=== PATIENT | female | born 1995 | race Two or more races ===

== ENCOUNTER 2024-11-06 13:04 | Emergency (ER) | payer MEDICAID, SELFPAY ==
[2024-11-06 13:13] VITALS: BP 138/92; PULSE 83; RESP 16; TEMP 36.9; O2SAT 97; BMI 41.3
--- NOTE | 2024-11-06 13:24 | XR_ITS ---
Examination: Pelvic ultrasound, transabdominal, complete Technique: Transabdominal ultrasound of the pelvis performed using grayscale imaging Date and time of exam: November 06, 2024 1358 hours INDICATIONS: Irregular heavy menses 5 days FINDINGS: Uterus 9.3 cm endometrial stripe 0.7 cm Small calcifications in the uterine body Right ovary 3.2 cm arterial flow Left ovary 3.5 cm arterial flow IMPRESSION: No uterine or adnexal mass
--- NOTE | 2024-11-06 13:24 | EKG_ITS ---
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
--- NOTE | 2024-11-06 13:24 | XR_ITS ---
Examination: PA lateral chest 2 views TECHNIQUE: Upright PA lateral chest 2 views Date and time: November 06, 2024 1338 hours INDICATIONS: Chest pain today. FINDINGS: Reduced inspiratory effort Normal heart size No pneumonia or pulmonary edema IMPRESSION: No active disease
--- NOTE | 2024-11-06 13:25 | PD.EDRME ---
Rapid Medical Screening Exam RME Arrival date/time: 11/06/24 13:04 29-year-old female presents emergency department today for complaint of vaginal bleeding Chief Complaint: Vaginal Bleeding Time Seen by Provider: 11/06/24 13:19 Vital signs: Vital Signs Temperature 98.4 F 11/06/24 13:13 Pulse Rate 83 11/06/24 13:13 Respiratory Rate 16 11/06/24 13:13 Blood Pressure 138/92 H 11/06/24 13:13 Pulse Oximetry (%) 97 11/06/24 13:13 Oxygen Delivery Method Room Air 11/06/24 13:13
[2024-11-06 14:38] LABS: Basophils # (Auto) 0.1 Thou/mm3 (0.0-0.2); Basophils % (Auto) 1 % (0-2.5); Eosinophils # (Auto) 0.1 Thou/mm3 (0.0-0.5); Eosinophils % (Auto) 2 % (0-10); Hematocrit 38.6 % (36.0-46.0); Hemoglobin 13.8 g/dL (12.0-16.0); Immature Granulocytes % (Auto) 0 % (0-0); Immature Granulocytes Auto 0.02 Thou/mm3 (0.00-0.00); Lymphocytes # (Auto) 1.4 Thou/mm3 (1.0-4.8); Lymphocytes % (Auto) 20 % (10-50); Mean Corpuscular HGB Conc 35.8 g/dl (31.0-37.0); Mean Corpuscular Hemoglobin 29.4 pg (25.0-35.0); Mean Corpuscular Volume 82 fL (80-100); Monocytes # (Auto) 0.5 Thou/mm3 (0.0-0.8); Monocytes % (Auto) 7 % (0-12); Neutrophils # (Auto) 5.1 Thou/mm3 (1.8-7.7); Neutrophils % (Auto) 71 % (37-80); Nucleated Red Blood Cell % 0 /100 WBC (0); Platelet Count 280 Thou/mm3 (140-440); RDW Standard Deviation 36.2 fL (36.4-46.3); White Blood Count 7.3 Thou/mm3 (3.6-11.0)
[2024-11-06 14:50] LABS: Glucose Estimated Average 283 mg/dL (80-131); Hemoglobin A1C 11.5 % Hgb (4.8-6.0)
[2024-11-06 14:57] LABS: HCG,Qualitative Serum Negative
[2024-11-06 14:58] LABS: INR 0.9 (0.9-1.3); Partial Thromboplastin Time 26.7 Seconds (22.0-36.0); Prothrombin Time 10.3 Seconds (9.0-12.2)
[2024-11-06 15:02] LABS: Alanine Aminotransferase 12 U/L (10-49); Albumin, Serum 3.9 gm/dL (3.5-5.0); Albumin/Globulin Ratio 1.5 (1.2-2.2); Alkaline Phosphatase 69 U/L (46-116); Anion Gap 6 (7-16); Aspartate Amino Transferase 13 U/L (0-34); BUN/Creatinine Ratio 10 Ratio (12-20); Bilirubin,Total 0.3 mg/dL (0.3-1.2); Blood Urea Nitrogen 9 mg/dL (9-23); Calcium 9.2 mg/dL (8.3-10.6); Calcium (Corrected) 9.3 mg/dL (8.5-10.1); Carbon Dioxide 28.3 mMol/L (20.0-31.0); Chloride 100 mMol/L (98-107); Creatinine (Component) 0.9 mg/dL (0.6-1.3); Estimated Creatinine Clearance 110.3 mL/min (>60); Globulin 2.6 gm/dL (2.3-3.5); Osmolality,Calculated 285 (275-295); Potassium 4.2 mMol/L (3.4-5.1); Sodium 134 mMol/L (136-145); Total Protein 6.5 gm/dL (5.7-8.2); Troponin I < 0.002 ng/mL (0.0-0.045); eGFR > 60 See Note
[2024-11-06 15:06] LABS: Glucose 437 mg/dL (74-106)
--- NOTE | 2024-11-06 17:16 | PD.EDVAGBL ---
ED OB Contraction Preg RMI/HPI General Chief complaint: Vaginal Bleeding Stated complaint: Vaginal bleeding heavy X 3 days Time Seen by Provider: 11/06/24 13:19 Arrival date/time: 11/06/24 13:04 RME / HPI RME / HPI Narrative: 29-year-old female patient with significant history of diabetes mellitus, came in for evaluation regarding dizziness. Patient is worried because she is having sudden onset of dizziness, severity mild. Today is her third day of heavy menstruation. She is worried that she might be anemic. Patient denies any headache denies any blurring vision, denies any slurring of speech denies any other complaint patient is ambulatory. Patient ate lunch prior to ER visit. Related Data Home Medications ?Medication ?Instructions ?Recorded ?Confirmed insulin glargine 100 unit/mL (3 40 unit subcut QAM 09/19/21 11/02/21 mL) subcutaneous pen (CHROMAomaglar KwikPen U-100 Insulin) lisinopril 2.5 mg tablet 2.5 mg PO QDAY 09/19/21 11/02/21 loratadine 10 mg tablet 10 mg PO QDAY PRN allergies 09/19/21 11/02/21 sitagliptin phosphate 50 1 tab PO BID 09/19/21 11/02/21 mg-metformin 1,000 mg tablet (Janumet) Previous Rx's ?Medication ?Instructions ?Recorded alprazolam 0.25 mg tablet (Xanax) 0.25 mg PO QDAY PRN anxiety #7 tabs 11/02/21 ondansetron 4 mg disintegrating 4 mg PO Q8H #14 tabs 03/11/22 tablet diphenhydramine HCl 25 mg capsule 25 mg PO Q8H PRN allergic symptoms 06/28/22 (Benadryl) #30 caps clindamycin HCl 300 mg capsule 300 mg PO QID #40 caps 12/23/22 Allergies Allergy/AdvReac Type Severity Reaction Status Date / Time No Known Allergies Allergy Verified 11/06/24 13:10 Review of Systems Review of Systems Narrative Review of Systems: Review of system reviewed and within normal limits except mentioned in HPI ED Exam Narrative Physical exam: VITAL SIGNS: Reviewed. GENERAL APPEARANCE: Alert and interactive, follows commands, no acute distress, HEAD AND FACE: Non-traumatic. ENT: PERRL, pink conjunctivitis, eyelid no trauma, Mucous membrane moist. NECK: Supple, nontender, no nuchal rigidity. CHEST: No tenderness, no crepitus, no paradoxical movement, no retractions. LUNGS: Clear, well ventilated, symmetric, no rales, no wheezing, no ronchi, no stridor, good breath sounds bilaterally. HEART: Regular rate, regular rhythm, no murmur, no gallops. ABDOMEN: Soft, positive bowel sounds, nondistended, no guarding, nontender, no rebound, no masses, RECTAL: Deferred. GENITAL: Deferred. NEUROLOGICAL: Gross motor function intact sensory function intact, Appropriate for age. MUSCULOSKELETAL: low back nontender, full range of motion. EXTREMITIES: Nontender, full range of motion. SKIN: Color pink, dry, no rash, no lacerations, no abrasions, no contusions. LYMPHATICS: Deferred. Course Quality Measures none Orders Category Date Time Status EKG (ED ONLY) *Do not use* NOW Care 11/06/24 13:24 Completed EKG (ED Only) Stat Exams 11/06/24 13:24 Draft US pelvic complete Stat Exams 11/06/24 13:24 Completed XR chest 2V Stat Exams 11/06/24 13:24 Completed A1C [Glycohemoglobin w (eAG)] Stat Lab 11/06/24 14:25 Completed CBC Stat Lab 11/06/24 14:25 Completed Comprehensive Metabolic Panel Stat Lab 11/06/24 14:25 Completed HCG,Qualitative Serum Stat Lab 11/06/24 14:25 Completed PT [Prothrombin Time with INR] Stat Lab 11/06/24 14:25 Completed PTT [Partial Thromboplastin Time] Stat Lab 11/06/24 14:25 Completed Troponin I Stat Lab 11/06/24 14:25 Completed Vital Signs Vital signs: Vital Signs Temperature 98.4 F 11/06/24 13:13 Pulse Rate 83 11/06/24 13:13 Respiratory Rate 16 11/06/24 13:13 Blood Pressure 138/92 H 11/06/24 13:13 Pulse Oximetry (%) 97 11/06/24 13:13 Oxygen Delivery Method Room Air 11/06/24 13:13 Vaginal Bleeding MDM Narrative MDM Narrative: 29-year-old female patient with significant history of diabetes mellitus, came in for evaluation regarding dizziness. Patient is worried because she is having sudden onset of dizziness, severity mild. Today is her third day of heavy menstruation. She is worried that she might be anemic. Patient denies any headache denies any blurring vision, denies any slurring of speech denies any other complaint patient is ambulatory. Patient ate lunch prior to ER visit. Patient patient's workup is significant for hyperglycemia, no sign of DKA. CBC no anemia noted. Patient blood sugar initially was noted to be 437. Prior to discharge I localized her iPhone with blood sugar check, it was 309. Patient is ambulatory wanted to go home. Her dizziness is totally gone. Patient data External records reviewed:: None Clinical information provided by:: patient Social determinants that could affect healthcare access:: none Patient has the following chronic illnesses:: Diabetes mellitus How is presenting disease/condition affected by chronic disease/condition?: exacerbated by Evaluation data The following diagnostics were reviewed and interpreted by me:: lab results and radiology exam(s) Lab and/or radiology exams considered but not ordered:: None Interpretation Summary: See results MDM Medications / Prescriptions Medications or Prescriptions considered but not ordered:: None Medication administrations:: None Consultations Consultation(s) initiated? (list below): No Diagnosis Vaginal Bleeding Differential Diagnosis: dysfunctional uterine bleeding, menometrorrhagia and incomplete (Dizziness) Most likely diagnosis given after review of the tests above:: Dizziness, vaginal bleeding Admission Indicated Admission indicated?: not indicated Admission Request Was there a request for admission?: No Disposition Plan Disposition Plan: Discharge Discharge Attestation Discharge Attestation: The patient was given an opportunity to ask questions and understood the discharge instructions. Discharge instructions specifically effects, indications for sooner follow up or return to the emergency department, and the expected course of current diagnosis. Patient condition: Stable Discharge Plan Plan Patient Disposition: HOME (Self Care) Discharge Disposition comment: Stable Prescriptions/Referrals Prescriptions/Med Rec: No Action alprazolam [Xanax] 0.25 mg tablet 0.25 mg PO QDAY PRN (Reason: anxiety) Qty: 7 0RF lisinopril 2.5 mg Tablet 2.5 mg PO QDAY loratadine 10 mg Tablet 10 mg PO QDAY PRN (Reason: allergies) Janumet 50-1,000 mg Tablet 1 tab PO BID insulin glargine [Basaglar KwikPen U-100 Insulin] 100 unit/mL (3 mL) Insulin Pen 40 unit SUBCUT QAM diphenhydramine HCl [Benadryl] 25 mg capsule 25 mg PO Q8H PRN (Reason: allergic symptoms) Qty: 30 0RF clindamycin HCl 300 mg capsule 300 mg PO QID Qty: 40 0RF ondansetron 4 mg tablet,disintegrating 4 mg PO Q8H Qty: 14 0RF Referrals: Yris Latham, [employer] [Primary Care Provider] - In 1 week Problem List Clinical Impression: Vaginal bleeding, Dizziness, Hyperglycemia due to type 2 diabetes mellitus Patient/Caregiver Discharge Instructions Discharge Activity: activity as tolerated Education Materials: ED Diet: Diabetes Additional Instructions: Thank you for the opportunity for serving you today. You are stable for discharged . You are advised to: Follow-up with your PCP in 1 to 2 days Return to ED for worsening of symptoms Increase oral fluids Print Language: Croatian Stand Alone Forms: Liz Award Info., Patient Portal Info Letter SHERMAN/JABARI Supervising Physician SHERMAN/JABARI Supervising Physician: MD Nely
[2024-11-06 17:19] VITALS: BP 158/94; PULSE 82; RESP 18; TEMP 36.7; O2SAT 98
== END 2024-11-06 17:47 | disposition home or self-care (01) ==
PROVIDERS: Nurse Practitioner Primary Care; Emergency Provider Emergency Medicine; PCP Registered Nurse Community Health
DX: E11.65 Type 2 diabetes mellitus with hyperglycemia (principal); N93.9 Abnormal uterine and vaginal bleeding, unspecified; R42 Dizziness and giddiness; R07.9 Chest pain, unspecified; I45.89 Other specified conduction disorders; Z79.84 Long term (current) use of oral hypoglycemic drugs; Z79.4 Long term (current) use of insulin
CPT/HCPCS: 36415; 71046; 76856; 80053; 83036; 84484; 84703; 85025; 85610; 85730; 93005; 99284